=== PATIENT | male | born 1940 | race Caucasian/White ===

== ENCOUNTER 2017-02-19 16:22 | Observation (INO) ==
[2017-02-19 17:12] LABS: Basophils # 0.1 K/mcL (0.0-0.2); Basophils % 0.6 %; Eosinophils # 0.2 K/mcL (0.0-0.6); Eosinophils % 2.3 %; Hematocrit 47.3 % (37.5-50.1); Hemoglobin 15.4 g/dL (12.9-16.9); Immature Granulocytes % 0.5 % (0-4); Lymphocytes # 2.3 K/mcL (0.6-4.6); Lymphocytes % 26.9 %; Mean Corpuscular HGB Conc 32.6 g/dL (31.6-35.5); Mean Corpuscular Hemoglobin 28.3 pg (28.0-33.3); Mean Corpuscular Volume 86.9 fL (83.0-100.0); Mean Platelet Volume 10.9 fL (9.4-12.4); Monocytes # 0.6 K/mcL (0.0-1.3); Monocytes % 7.2 %; Neutrophils # 5.3 K/mcL (1.6-8.9); Platelet Count 189 K/mcL (140-400); Red Blood Count 5.44 M/mcL (4.19-5.50); Red Cell Distribution Width 14.6 % (11.5-14.5); Segmented Neutrophils % 62.5 %
[2017-02-19 17:13] LABS: INR 1.1; Prothrombin Time 12.4 Seconds (9.4-12.1)
[2017-02-19 17:16] LABS: Activated Partial Thrombo Time 34.4 Seconds (26.0-36.0)
[2017-02-19 18:01] LABS: Alanine Aminotransferase 37 Units/L (0-55); Albumin 3.6 g/dL (3.5-5.0); Alkaline Phosphatase 90 Units/L (38-126); Aspartate Amino Transferase 32 Units/L (5-34); BUN/Creatinine Ratio 17 (6-26); Bilirubin,Direct 0.3 mg/dL (0.0-0.5); Bilirubin,Indirect 0.4 mg/dL (0.0-1.2); Bilirubin,Total 0.7 mg/dL (0.2-1.2); Blood Urea Nitrogen 19 mg/dL (8-26); Calcium 9.6 mg/dL (8.6-10.8); Carbon Dioxide 19 mEq/L (19-29); Chloride 108 mEq/L (98-109); Globulin 3.7 g/dL (2.4-3.5); Glucose 106 mg/dL (70-99); Lipase 34 Units/L (8-78); Osmolality,Calculated 291 (280-300); Potassium 4.9 mEq/L (3.5-4.5); Sodium 139 mEq/L (136-145); Total Protein 7.3 g/dL (6.0-8.3); eGFR For African Americans > 60 (> 60); eGFR For Non-African Americans > 60 (> 60)
[2017-02-19] MEDS ORDERED: Aspirin 325 MG TABLET PO ONE (19:46)
--- NOTE | 2017-02-19 20:18 | Emergency Department Note ---
Disposition Clinical Impression: Chest pain Qualifiers: Chest pain type: unspecified Qualified Code(s): R07.9 - Chest pain, unspecified Disposition: Admitted As Inpatient Condition: Good Referrals: Buster Sigala MD [Primary Care Provider] - Forms: ED Satisfaction Letter Time of Disposition: 20:26 SOB HPI - General Chief Complaint: ED Shortness of Breath/Dyspnea Stated Complaint: Swelling bilateral lower extermities,CASEY Time Seen by Provider: 02/19/17 16:35 Source: patient Limitations: no limitations Nursing Notes Reviewed: Yes Vital Signs Reviewed: Yes - History of Present Illness 76-year-old male history of CAD, CABG, hypertension, hyperlipidemia presents complaining of chest pain shortness of breath. Patient states that he was sent by his primary care physician Dr. Sigala because of worsening progressive dyspnea on exertion, lower summary swelling. Patient has what he describes as 4 out of 10 chest pain in his substernal chest after indurating. He had about 3 hours of persistent pain, he did take aspirin he is on aspirin and Plavix, his previous CABGs up at [facility]. He also had stents placed at [place]. Patient states that his pain is currently gone, he did not take any nitroglycerin, he has no fever cough or recent productive sputum, has no hematuria hemoptysis or hematochezia. No DVTs or PEs Pt Subjective Complaint: shortness of breath Onset (ago): hour(s) Severity: moderate Improves with: rest Worsens with: nothing Cough present: No - Related Data Home Medications Medication Instructions Recorded Confirmed Aspirin Enteric Coated [Aspirin EC] 81 mg PO QPM 12/30/14 07/09/15 CloNIDine HCl 0.1 mg PO BID PRN 12/30/14 07/09/15 Lisinopril [Zestril] 20 mg PO QPM 12/30/14 05/28/15 Metformin [Glucophage] 500 mg PO BID 12/30/14 07/09/15 Tamsulosin [Flomax] 0.4 mg PO QAM 12/30/14 07/09/15 Vitamin B Complex [B Complex] 1 each PO QAM 12/30/14 07/09/15 Cholecalciferol (Vitamin D3) 1,000 unit PO DAILY 04/08/15 07/09/15 [Vitamin D3] Flaxseed/Omega3,6,9/Fatty Acid 1 each PO DAILY 04/28/15 07/09/15 [Flax Seed Oil 1,300 mg Softgel] Isosorbide MONOnitrate (24 HR) 60 mg PO DAILY 04/28/15 07/09/15 [Imdur] Atorvastatin [Lipitor] 40 mg PO HS 05/28/15 07/09/15 Cinnamon 500 mg PO BID 07/09/15 07/09/15 Previous Rx's Medication Instructions Recorded Metoprolol XL (24 HR) Succ [Toprol 25 mg PO DAILY #30 tab.er.24h 01/09/15 XL] Clopidogrel [Plavix] 75 mg PO DAILY #30 tablet 04/29/15 Nitroglycerin 0.4 mg SL Q5MIN PRN #30 tab.subl 04/29/15 Allergies Allergy/AdvReac Type Severity Reaction Status Date / Time No Known Drug Allergies Allergy See Verified 05/28/15 08:04 Comments All systems ED: reviewed and negative except as stated. Review of Systems: As Per HPI Constitutional: Denies: fever, chills ENT ED: Denies: ear pain Cardiovascular: Reports: as per HPI, chest pain, dyspnea on exertion, edema Respiratory: Reports: dyspnea. Denies: wheezes, hemoptysis Gastrointestinal: Denies: abdominal pain, nausea Genitourinary: Denies: urgency Musculoskeletal: Denies: back pain, neck pain Integumentary: Denies: rash Past Medical History - Past Medical History Attestation: Yes The following information was validated with the patient. Source: patient Medical history: Reports: arthritis, coronary artery disease, diabetes, hypertension Surgical history: Reports: coronary bypass (CABG), other Psychiatric history: Reports: no psych history - Social History Smoking Status: Former smoker Smokeless Tobacco Status: No Alcohol use: Reports: none Drug use: Reports: none Physical Exam Constitutional: alert and oriented, obese, in NAD, vital signs reviewed and wnl Neck: normal inspection, neck is supple, no JVD Resp: normal chest inspection, CTA bilaterally, no resp distress, no wheezes/ rales/rhonchi CV: midline scar c/w cabg RRR, no murmurs/gallops/rubs, S1 and S2 heard Extremity: +2 bilateral radial and posterial tibial pulses, n+1 pedal edema GI: normal inspection, Soft, NTND, no peritoneal signs, no palpable abdominal aortic aneurysm Back: normal inspection, no tenderness to palpation Neuro: A&O3, no gross motor or sensory deficits bilaterally MSK: normal inspection, bilateral UE and LE with normal ROM Skin: No rashes, skin warm, dry, intact - General Limitations: no limitations General appearance: alert, in no apparent distress Course Course Narrative: 76-year-old male with history of CABG presents with chest pain at exert exertional chest pain that persisted for about 3 hours arrest worsening shortness of breath and bilateral peripheral edema, has a history of CABG, his lab work was ordered at triage, his troponin is negative, EKG shows no acute ischemic changes, the plan will be for admission to the hospital service I did give him aspirin admit to Dr Sanchez for monitoring, trending troponins and possible stress test in the morning, patient at this time is chest pain-free admitted to medicine service in stable condition Vital Signs Temperature 98.9 F 02/19/17 17:46 Pulse Rate 67 02/19/17 17:46 Respiratory Rate 16 02/19/17 17:46 Blood Pressure 185/67 02/19/17 17:46 O2 Sat by Pulse Oximetry 93 02/19/17 17:46 Temperature 98.9 F 02/19/17 17:46 Pulse Rate 67 02/19/17 17:46 Respiratory Rate 16 02/19/17 17:46 Blood Pressure 185/67 02/19/17 17:46 O2 Sat by Pulse Oximetry 93 02/19/17 17:46 Oxygen Delivery Oxygen Delivery Room Air Shortness of Breath/Dyspnea - Differential Diagnosis Likely: acute exacerbation of chronic obstructive airways disease, congestive heart failure - Medical Records Medical records reviewed: Yes I reviewed the patient's medical records. - Lab Data Lab results reviewed: Yes I reviewed the patient's lab results. Result diagrams: 02/19/17 16:55 02/19/17 16:55 Lab Results 02/19/17 02/19/17 02/19/17 Range/Units 16:55 16:55 16:55 WBC (4.3-11.1) K/mcL RBC (4.19-5.50) M/mcL Hgb (12.9-16.9) g/dL Hct (37.5-50.1) % MCV (83.0-100.0) fL MCH (28.0-33.3) pg MCHC (31.6-35.5) g/dL RDW (11.5-14.5) % Plt Count (140-400) K/mcL MPV (9.4-12.4) fL Immature Gran % (0-4) % Seg Neutrophils % % Lymphocytes % % Monocytes % % Eosinophils % % Basophils % % Neutrophils # (1.6-8.9) K/mcL Lymphocytes # (0.6-4.6) K/mcL Monocytes # (0.0-1.3) K/mcL Eosinophils # (0.0-0.6) K/mcL Basophils # (0.0-0.2) K/mcL PT 12.4 H (9.4-12.1) Seconds INR 1.1 APTT 34.4 (26.0-36.0) Seconds Sodium 139 (136-145) mEq/L Potassium 4.9 H (3.5-4.5) mEq/L Chloride 108 (98-109) mEq/L Carbon Dioxide 19 (19-29) mEq/L BUN 19 (8-26) mg/dL Creatinine 1.10 (0.72-1.25) mg/dL Est GFR ( Amer) > 60 (> 60) Est GFR (Non-Af Amer) > 60 (> 60) BUN/Creatinine Ratio 17 (6-26) Glucose 106 H (70-99) mg/dL Calculated Osmolality 291 (280-300) Calcium 9.6 (8.6-10.8) mg/dL Total Bilirubin 0.7 (0.2-1.2) mg/dL Direct Bilirubin 0.3 (0.0-0.5) mg/dL Indirect Bilirubin 0.4 (0.0-1.2) mg/dL AST 32 (5-34) Units/L ALT 37 (0-55) Units/L Alkaline Phosphatase 90 (38-126) Units/L Troponin I (0-0.03) ng/mL B-Natriuretic Peptide 15 (0-100) pg/mL Serum Total Protein 7.3 (6.0-8.3) g/dL Albumin 3.6 (3.5-5.0) g/dL Globulin 3.7 H (2.4-3.5) g/dL Albumin/Globulin Ratio 1.0 L (1.1-2.2) Lipase 34 (8-78) Units/L 11/27/17 11/27/17 Range/Units 16:55 16:55 WBC 8.4 (4.3-11.1) K/mcL RBC 5.44 (4.19-5.50) M/mcL Hgb 15.4 (12.9-16.9) g/dL Hct 47.3 (37.5-50.1) % MCV 86.9 (83.0-100.0) fL MCH 28.3 (28.0-33.3) pg MCHC 32.6 (31.6-35.5) g/dL RDW 14.6 H (11.5-14.5) % Plt Count 189 (140-400) K/mcL MPV 10.9 (9.4-12.4) fL Immature Gran % 0.5 (0-4) % Seg Neutrophils % 62.5 % Lymphocytes % 26.9 % Monocytes % 7.2 % Eosinophils % 2.3 % Basophils % 0.6 % Neutrophils # 5.3 (1.6-8.9) K/mcL Lymphocytes # 2.3 (0.6-4.6) K/mcL Monocytes # 0.6 (0.0-1.3) K/mcL Eosinophils # 0.2 (0.0-0.6) K/mcL Basophils # 0.1 (0.0-0.2) K/mcL PT (9.4-12.1) Seconds INR APTT (26.0-36.0) Seconds Sodium (136-145) mEq/L Potassium (3.5-4.5) mEq/L Chloride (98-109) mEq/L Carbon Dioxide (19-29) mEq/L BUN (8-26) mg/dL Creatinine (0.72-1.25) mg/dL Est GFR ( Amer) (> 60) Est GFR (Non-Af Amer) (> 60) BUN/Creatinine Ratio (6-26) Glucose (70-99) mg/dL Calculated Osmolality (280-300) Calcium (8.6-10.8) mg/dL Total Bilirubin (0.2-1.2) mg/dL Direct Bilirubin (0.0-0.5) mg/dL Indirect Bilirubin (0.0-1.2) mg/dL AST (5-34) Units/L ALT (0-55) Units/L Alkaline Phosphatase (38-126) Units/L Troponin I 0.00 (0-0.03) ng/mL B-Natriuretic Peptide (0-100) pg/mL Serum Total Protein (6.0-8.3) g/dL Albumin (3.5-5.0) g/dL Globulin (2.4-3.5) g/dL Albumin/Globulin Ratio (1.1-2.2) Lipase (8-78) Units/L - Radiology Data Radiology results reviewed: Yes I reviewed the patient's radiology results. Chest X-Ray 02/19/17 16:35 IMPRESSION: No acute cardiopulmonary process. D/ / Luan Spann MD / Luan Spann MD Interpreting Provider: Luan Spann MD - EKG Data EKG attestation: Yes I reviewed and interpreted this EKG. EKG shows normal: Reports: sinus rhythm (61 bpm WI 188 QRS 106 QTC [address] segment elevations or depressions compared to previous EKG May 2015) [place]/QRS: Reports: RBBB Heart Score - Score History: Moderately Suspicious EKG: Normal Age: Greater than 65 Risk Factors: Equal/Greater than 3 risk factor or history of atherosclerotic disease Troponin: Less than normal limit HEART Score Total: 5
[2017-02-19] MEDS ORDERED: Acetaminophen 325 MG TABLET PO PRN (21:09)
[2017-02-19] MEDS ORDERED: Naloxone 0.4 MG/ML INJ IVP PRN (21:09)
[2017-02-19] MEDS ORDERED: Nitroglycerin 0.4 MG TAB.SUBL SL PRN (21:10)
--- NOTE | 2017-02-19 21:24 | Internal Med History&Physical ---
<Veronica Tobias - Last Filed: 02/19/17 21:46> Date of Encounter: 02/19/17 Time of Encounter: 21:15 Assessment and Plan (1) Chest pain Current visit: Yes Status: Acute 1 patient has been experiencing midsternal chest burning which he describes similar to his pain he had during his ME. He has a past history of three- vessel CABG 2014 and stent placement to grafts in 2016. His first troponin was 0 with continued trend troponins Nitroglycerin as needed for chest pain Continuous cardiac monitoring NPO after midnight cardiac stress in am echo Qualifiers: Chest pain type: unspecified Qualified Code(s): R07.9 - Chest pain, unspecified (2) HTN (hypertension) Current visit: No Status: Chronic presently stable continue with Lisinopril Qualifiers: Hypertension type: essential hypertension Qualified Code(s): I10 - Essential (primary) hypertension (3) Diabetes mellitus Current visit: No Status: Chronic Hold oral medications for now. 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 He will continue with dual antiplatelet therapy Metoprolol, lisinopril Statin Nitroglycerin as needed for chest pain Qualifiers: Coronary Disease-Associated Artery/Lesion type: bypass graft [place] vs. transplanted heart: [place] heart Associated angina: with unspecified angina Qualified Code(s): I25.709 - Atherosclerosis of coronary artery bypass graft(s) , unspecified, with unspecified angina pectoris (5) DVT prophylaxis Current visit: No Status: Acute ANA harris Internal Medicine - H&P: HPI Chief complaint: CP Admitted From: Emergency Dept Plans for Post Hospital Care: Home History of present illness: Mr. Zambrano is a 76 year old male past medical history of CAD CABG 3 vessel hypertension hyperlipidemia according to the patient he began to experience 4 out of 10 chest burning midsternal nonradiating while he was walking. There were no aggravating or relieving factors the pain persisted for approximately 3 hours and resolved on his own. He did see his primary care physician because of worsening dyspnea on exertion as well as lower extremity swelling. He was sent to the ER for evaluation. The patient does have a cardiac history he had a three-vessel CABG in 2014 last year he underwent a cardiac stenting at this facility and underwent second stenting at [facility]. Received 3 stents altogether in all bypassed vessel. He denies any fevers chills nausea vomiting diarrhea. Lab work obtained unremarkable troponin was 0 , chest x-ray no acute process. Ekg with no ST wave abnormality. He presently CP free. He has been admitted for further work up and evaluation Past Med Surg Social Fam HX - Past Medical History Medical history: arthritis, coronary artery disease, diabetes, hypertension Psychiatric history: no psych history - Past Surgical History Surgical History: coronary bypass (CABG), other - Social History Smoking Status: Former smoker Smokeless Tobacco Status: No Alcohol use: none Drug use: none - Family History Father Adopted: No Living Status: Hx Family Cardiac Disorders: Yes Hx Family Respiratory Disorders: No Hx Family Cancer: Yes Hx Family GI Disorders: No Hx Family Endocrine Disorder: Yes Hx Family Neuromuscular Disorders: No Hx Family Neurologic Disorders: No Hx Family HEENT Disorders: No Hx Family Autoimmune Disorders: No Internal Medicine - H&P: Meds Aspirin Enteric Coated [Aspirin EC] 81 mg PO QPM 12/30/14 [History] CloNIDine HCl 0.1 mg PO BID PRN 12/30/14 [History] Lisinopril [Zestril] 20 mg PO QPM 12/30/14 [History] Metformin [Glucophage] 500 mg PO BID 12/30/14 [History] Tamsulosin [Flomax] 0.4 mg PO QAM 12/30/14 [History] Vitamin B Complex [B Complex] 1 each PO QAM 12/30/14 [History] Metoprolol XL (24 HR) Succ [Toprol XL] 25 mg PO DAILY #30 tab.er.24h 01/09/15 [ Rx] Cholecalciferol (Vitamin D3) [Vitamin D3] 2,000 unit PO DAILY 04/08/15 [History] Flaxseed/Omega3,6,9/Fatty Acid [Flax Seed Oil 1,300 mg Softgel] 1 each PO DAILY 04/28/15 [History] Isosorbide MONOnitrate (24 HR) [Imdur] 60 mg PO DAILY 04/28/15 [History] Clopidogrel [Plavix] 75 mg PO DAILY #30 tablet 04/29/15 [Rx] Nitroglycerin 0.4 mg SL Q5MIN PRN #30 tab.subl 04/29/15 [Rx] Atorvastatin [Lipitor] 40 mg PO HS 05/28/15 [History] Cinnamon Bark [Cinnamon] 500 mg PO BID 07/09/15 [History] Acetaminophen [Tylenol] 500 mg PO Q6H PRN 02/19/17 [History] Cranberry Fruit Concentrate [Cranberry] 450 mg PO DAILY 02/19/17 [History] [place]-3/Dha/Epa/Fish Oil [Fish Oil 1,000 mg Softgel] 1,000 mg PO DAILY 02/19/17 [History] Ubidecarenone [Co Q-10] 100 mg PO DAILY 02/19/17 [History] 3 Allergy/AdvReac Type Severity Reaction Status Date / Time No Known Drug Allergies Allergy See Verified 05/28/15 08:04 Comments All Systems PM: A 10-system review of systems was performed and is negative for pertinent findings except as documented above in the HPI. - Constitutional Constitutional: no chills, no fever(s), no night sweats - EENT Eyes: no change in vision, no discharge, no pain, no photophobia Nose, mouth and throat: no dysphagia, no nasal discharge, no neck pain, no sore throat - Cardiovascular Cardiovascular ROS IM: chest pain, dyspnea on exertion, edema, no diaphoresis, no dyspnea, no lightheadedness, no palpitations, no syncope - Respiratory Respiratory: no cough, no dyspnea, no wheezing, no excessive phlegm production - Gastrointestinal Gastrointestinal: no abdominal pain, no diarrhea, no hematemesis, no hematochezia, no melena, no nausea, no vomiting - Musculoskeletal Musculoskeletal ROS IM: no numbness, no tingling - Integumentary Integumentary IM: no rash, no unusual bruising - Neurological Neurological ROS: no confusion, no convulsions, no focal weakness, no numbness, no tingling, no tremor(s) - Hematologic/Lymphatic Hematologic/Lymphatic: no easy bruising - Constitutional Vitals: Temp Pulse Resp BP Pulse Ox 98.9 F 62 16 163/83 97 02/19/17 17:46 02/19/17 20:45 02/19/17 20:45 02/19/17 20:45 02/19/17 20:45 General appearance: Present: A&O X 3 - Head Head exam: Present: atraumatic, normocephalic - Eye Eye exam: Present: PERRL, conjuntiva pink, sclera anicteric Pupils: Present: PERRL - Neck Neck exam general surgery: Present: supple, trachea midline. Absent: lymphadenopathy - Respiratory Respiratory exam: Present: CTAB. Absent: accessory muscle use, rales, rhonchi, wheezes - Cardiovascular Cardiovascular exam: Present: RRR, +S1, +S2. Absent: diastolic murmur, gallop, rubs, systolic murmur - GI/Abdominal GI/Abdominal exam: Present: normal bowel sounds, soft, no peritoneal signs. Absent: distended, tenderness - Extremities Exam Extremities exam: Present: warm, radial pulses palpable and symmetrical. Absent : calf tenderness, cyanotic, pedal edema - Neurological Exam Neurological exam: Present: CN II-XII intact, oriented X3, no focal deficits. Absent: pronater drift, facial droop, speech deficit - Skin Skin exam: Present: dry, intact Internal Med - H&P Results - Labs CBC & Chem 7: 02/19/17 16:55 02/19/17 16:55 - EKG Data EKG shows normal: sinus rhythm - EKG Data Prior EKG available for review: yes When compared to previous EKG: there is no significant change - Diagnostic Studies Chest x-ray Additional comments: Chest X-Ray 02/19/17 16:35 IMPRESSION: No acute cardiopulmonary process. D/ / Luan Spann MD / Luan Spann MD Interpreting Provider: Luan Spann MD <Carmine Sanchez - Last Filed: 02/19/17 23:57> Date of Encounter: 02/19/17 Internal Medicine - H&P: HPI History of present illness: Mr. Zambrano is a 76 year old male All Systems PM: A 10-system review of systems was performed and is negative for pertinent findings except as documented above in the HPI. - Constitutional Vitals: Temp Pulse Resp BP Pulse Ox 97.9 F 55 16 145/65 91 02/19/17 21:41 02/19/17 21:41 02/19/17 21:41 02/19/17 21:41 02/19/17 21:41 Internal Med - H&P Results - Labs CBC & Chem 7: 02/19/17 16:55 02/19/17 16:55 Labs: Cardiac Enzymes 02/19/17 Range/Units 21:59 Troponin I 0.00 (0-0.03) ng/mL - Attending Attestation I conducted a face to face diagnostic evaluation of this patient and my medical decision-making was reviewed with the Nurse Practitioner. I agree with the documented findings, disposition and treatment plan as described except to the extent set forth below: Patient is in no acute distress. Heart is regular, lungs are clear. Extremities have 1+ pitting edema. Plan: We will add low-dose oral Lasix to start tomorrow. Trend troponin to rule out ACS. Obtain stress test and echocardiogram in the morning.
[2017-02-19] MEDS ORDERED: D5% in Water 1,000 ML IVC PRN (21:26)
[2017-02-19] MEDS ORDERED: *HR* Dextrose 50 % in Water (Syg) 50 ML SYRINGE IVP PRN (21:26)
[2017-02-19] MEDS ORDERED: Dextrose Gel 15 GM PO PRN ×2 (21:26)
[2017-02-19] MEDS ORDERED: Lisinopril 20 MG TABLET PO SCH (23:44)
[2017-02-20 05:06] LABS: Basophils # 0.1 K/mcL (0.0-0.2); Basophils % 0.6 %; Eosinophils # 0.3 K/mcL (0.0-0.6); Eosinophils % 3.6 %; Hematocrit 44.2 % (37.5-50.1); Hemoglobin 14.9 g/dL (12.9-16.9); Immature Granulocytes % 0.5 % (0-4); Lymphocytes # 2.5 K/mcL (0.6-4.6); Mean Corpuscular HGB Conc 33.7 g/dL (31.6-35.5); Mean Corpuscular Hemoglobin 29.3 pg (28.0-33.3); Mean Platelet Volume 10.9 fL (9.4-12.4); Monocytes # 0.7 K/mcL (0.0-1.3); Monocytes % 8.4 %; Neutrophils # 4.2 K/mcL (1.6-8.9); Platelet Count 171 K/mcL (140-400); Red Blood Count 5.08 M/mcL (4.19-5.50); Red Cell Distribution Width 14.4 % (11.5-14.5); Segmented Neutrophils % 54.9 %
[2017-02-20 05:32] LABS: BUN/Creatinine Ratio 18 (6-26); Blood Urea Nitrogen 20 mg/dL (8-26); Calcium 9.3 mg/dL (8.6-10.8); Carbon Dioxide 22 mEq/L (19-29); Chloride 105 mEq/L (98-109); Chol/HDL Ratio 4.1 (0-4.9); Cholesterol 127 mg/dL (< 200); Glucose 93 mg/dL (70-99); HDL Cholesterol 31 mg/dL (40-59); LDL Cholesterol,Calculated 59 mg/dL (0-99); Osmolality,Calculated 288 (280-300); Sodium 138 mEq/L (136-145); Triglycerides 183 mg/dL (< 150); eGFR For African Americans > 60 (> 60); eGFR For Non-African Americans > 60 (> 60)
[2017-02-20] MEDS ORDERED: Regadenoson 0.4 MG/5 ML SYRINGE IVP ONE (05:54)
[2017-02-20 06:51] LABS: Bilirubin,Urine Negative (Negative); Blood,Urine Negative (Negative); Clarity,Urine Clear (Clear); Color,Urine Yellow (Yellow); Glucose,Urine (UA) Normal (Normal); Ketones,Urine Negative (Negative); Leukocyte Esterase,Urine Negative (Negative); Nitrite,Urine Negative (Negative); Protein,Urine Negative (Neg-Trace); Specific Gravity,Urine 1.017 (1.010-1.025); Urobilinogen,Urine Normal (Normal)
[2017-02-20] MEDS ORDERED: Furosemide 20 MG TABLET PO SCH (09:00)
[2017-02-20] MEDS ORDERED: Metoprolol XL (24 HR) Succ 25 MG TAB.ER.24H PO SCH (09:00)
[2017-02-20] MEDS ORDERED: Isosorbide MONOnitrate (24 HR) 60 MG TAB.ER.24H PO SCH (09:00)
[2017-02-20] MEDS: Insulin LISPRO 300 UNITS/3 ML VIAL SQ SCH ×2 (10:36→10:51)
[2017-02-20 10:46] VITALS: BP 138/80
--- NOTE | 2017-02-20 13:57 | Discharge Summary ---
Date of Encounter: 02/20/17 Time of Encounter: 13:52 - Discharge Diagnosis (1) Coronary artery disease Priority: Primary Status: Chronic Comments: Magdaleno Zambrano is a 76 short male with past medical history CAD, diabetes, hypertension and hyperlipidemia who presented to [facility] on 02/19/2017 with complaints of chest pain. His placed in observation status for ACS rule out. 1. CAD: per hx. With episode of chest pain day of presentation; resolved prior to arriving to the ER. Serial troponins negative, EKG without acute ST changes. TTE was EF 60% and mild diastolic dysfunction. Stress test negative for ischemia or infarct. No recurrence of chest pain while inpatient. Continue medical management with home ASA, Plavix, statin, nitrate, BB. Follow- up with cardiology outpatient 2. Diabetes: per hx. Blood sugars controlled. Cont home diabetes medication regimen. 3. Hypertension: per hx. BP controlled. Continue home BP medication regimen. 4. Hyperlipidemia: LDL 127. Cont home statin Qualifiers: Coronary Disease-Associated Artery/Lesion type: bypass graft [place] vs. 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) , unspecified, with unspecified angina pectoris (2) Diabetes mellitus Priority: Primary Status: Chronic Qualifiers: Diabetes mellitus type: type 2 Diabetes mellitus complication status: with circulatory complication Diabetes mellitus complication detail: with other circulatory complications Diabetes mellitus fci insulin use: without remote computer terminal operator use Qualified Code(s): E11.59 - Type 2 diabetes mellitus with other circulatory complications (3) HLD (hyperlipidemia) Priority: Primary Status: Chronic Qualifiers: Hyperlipidemia type: pure hypercholesterolemia Qualified Code(s): E78.00 - Pure hypercholesterolemia, unspecified; E78.0 - Pure hypercholesterolemia (4) HTN (hypertension) Priority: Primary Status: Chronic Qualifiers: Hypertension type: essential hypertension Qualified Code(s): I10 - Essential (primary) hypertension - Discharge Medications Home Medications: Aspirin Enteric Coated [Aspirin EC] 81 mg PO QPM 12/30/14 [History] CloNIDine HCl 0.1 mg PO BID PRN 12/30/14 [History] Lisinopril [Zestril] 20 mg PO QPM 12/30/14 [History] Metformin [Glucophage] 500 mg PO BID 12/30/14 [History] Tamsulosin [Flomax] 0.4 mg PO QAM 12/30/14 [History] Vitamin B Complex [B Complex] 1 each PO QAM 12/30/14 [History] Metoprolol XL (24 HR) Succ [Toprol XL] 25 mg PO DAILY #30 tab.er.24h 01/09/15 [ Rx] Cholecalciferol (Vitamin D3) [Vitamin D3] 2,000 unit PO DAILY 04/08/15 [History] Flaxseed/Omega3,6,9/Fatty Acid [Flax Seed Oil 1,300 mg Softgel] 1 each PO DAILY 04/28/15 [History] Isosorbide MONOnitrate (24 HR) [Imdur] 60 mg PO DAILY 04/28/15 [History] Clopidogrel [Plavix] 75 mg PO DAILY #30 tablet 04/29/15 [Rx] Nitroglycerin 0.4 mg SL Q5MIN PRN #30 tab.subl 04/29/15 [Rx] Atorvastatin [Lipitor] 40 mg PO HS 05/28/15 [History] Cinnamon Bark [Cinnamon] 500 mg PO BID 07/09/15 [History] Acetaminophen [Tylenol] 500 mg PO Q6H PRN 02/19/17 [History] Cranberry Fruit Concentrate [Cranberry] 450 mg PO DAILY 02/19/17 [History] [place]-3/Dha/Epa/Fish Oil [Fish Oil 1,000 mg Softgel] 1,000 mg PO DAILY 02/19/17 [History] Ubidecarenone [Co Q-10] 100 mg PO DAILY 02/19/17 [History] Allergies/Adverse Reactions: 3 Allergy/AdvReac Type Severity Reaction Status Date / Time No Known Drug Allergies Allergy See Verified 05/28/15 08:04 Comments Procedures/tests Complete & Pending: Procedures Performed prior 72 hours Category Date Time Status NM [place] perf SPECT multi [NM] Routine Exams 02/19/17 21:48 Taken EV echocardiogram Routine Y 02/20/17 21:47 Completed SP pharm nuclear stress Routine Y 02/20/17 07:00 Completed Date of admission: 02/19/17 20:29 Primary care physician: Buster Sigala MD Discharging clinician: Susan Cosme Anticipated date of discharge: 02/20/17 - Patient Status Disposition: Home, Self-Care Condition: Good Functional capacity at discharge: independent ambulation Overall status at discharge: patient is progressing back to baseline - Discharge Instructions Instructions: Coronary Artery Disease (DC) Follow Up With: Buster Sigala MD [Primary Care Provider] - - Diet and Activity Activity: increase activity as tolerated Diet: diabetic diet, low fat, low cholesterol, low salt diet Interval History: Seen and examined at bedside. Patient is new to me, information obtained from chart review and patient report. Patient says he feels better, no further chest pain. [place]pot shortness of breath he says he is experiencing that off and on for months. He contributes that to his weight and overall multiple comorbidities. Denies chest pain on my exam. Reports medication compliance. Would like to discharge home if possible today. Hospital course: See assessment and plan for hospital course - Time Spent with Patient Total time spent providing and/or coordinating discharge services: - Constitutional Vitals: Temp Pulse Resp BP Pulse Ox 97.9 F 58 17 138/80 93 02/20/17 10:45 02/20/17 10:45 02/20/17 10:45 02/20/17 10:45 02/20/17 10:45 General appearance: Present: A&O X 3, morbidly obese - Head Head exam: Present: atraumatic, normocephalic - Eye Eye exam: Present: PERRL, conjuntiva pink, sclera anicteric Pupils: Present: PERRL - Neck Neck exam general surgery: Present: supple, trachea midline. Absent: lymphadenopathy - Respiratory Respiratory exam: Present: CTAB. Absent: accessory muscle use, rales, rhonchi, wheezes - Cardiovascular Cardiovascular exam: Present: RRR, +S1, +S2. Absent: diastolic murmur, gallop, rubs, systolic murmur - GI/Abdominal GI/Abdominal exam: Present: normal bowel sounds, soft, no peritoneal signs. Absent: distended, tenderness - Extremities Exam Extremities exam: Present: warm, radial pulses palpable and symmetrical. Absent : calf tenderness, cyanotic, pedal edema - Neurological Exam Neurological exam: Present: CN II-XII intact, oriented X3, no focal deficits. Absent: pronater drift, facial droop, speech deficit - Skin Skin exam: Present: dry, intact
[2017-02-20] MEDS ORDERED: Lisinopril 20 MG TABLET PO SCH (18:00)
[2017-02-20] MEDS ORDERED: Aspirin Enteric Coated 81 MG Tablet PO SCH (18:00)
[2017-02-20] MEDS ORDERED: Insulin LISPRO 300 UNITS/3 ML VIAL SQ SCH (21:00)
--- NOTE | 2017-02-23 11:46 | Electrocardiograph Report ---
[address] [address] Test Date: 2017-02-19 Pat Name: Magdaleno Zambrano Department: 103 Room: 3B Gender: M Medical Records Auditor: INGRIS : 1940 Requested By: Maria De Jesus Marin Order Number: [id number] Reading MD: Malick Hamilton Measurements Intervals [place] Rate: 61 P: 41 WA: 188 QRS: 8 QRSD: 106 T: 71 QT: 394 QTc: 396 Interpretive Statements SINUS RHYTHM INCOMPLETE RIGHT BUNDLE BRANCH BLOCK Electronically Signed On 02-23-2017 11:44:22 EST by Malick Hamilton
== END 2017-02-20 15:14 | disposition home or self-care (01) ==
LOC: EMEROO 16:22 → 3BNU 16:22
PROVIDERS: ADMIT Internal Medicine; ATTEND Registered Nurse